=== PATIENT | female | born 1985 | race Two or more races ===

== ENCOUNTER 2020-09-28 12:46 | Outpatient (REF) | payer OTHER, SELFPAY | END 2020-09-28 12:47 | disposition home or self-care (01) | LOC: HO.LAB 12:46 | PROVIDERS: Visit Provider Internal Medicine | DX: Z20.828 Contact with and (suspected) exposure to other viral communicable diseases (principal) | CPT/HCPCS: C9803; U0003 ==

== ENCOUNTER 2020-10-27 09:57 | Outpatient (REF) | payer OTHER, SELFPAY | END 2020-10-27 09:58 | disposition home or self-care (01) | LOC: HO.LAB 09:57 | PROVIDERS: Visit Provider Internal Medicine | DX: Z20.822 Contact with and (suspected) exposure to COVID-19 (principal) | CPT/HCPCS: 36415; C9803; U0003 ==

== ENCOUNTER 2020-11-09 14:41 | Outpatient (REF) | payer OTHER, SELFPAY | END 2020-11-09 14:42 | disposition home or self-care (01) | LOC: HO.LAB 14:41 | PROVIDERS: Visit Provider Internal Medicine | DX: Z20.822 Contact with and (suspected) exposure to COVID-19 (principal) | CPT/HCPCS: 36415; C9803; U0003 ==

== ENCOUNTER → 2023-07-18 13:12 | Outpatient (BNVA) | payer OTHER, SELFPAY | PROVIDERS: Visit Provider Physician Assistant Medical | DX: M70.841 Other soft tissue disorders related to use, overuse and pressure, right hand (principal) | CPT/HCPCS: 99203 ==

== ENCOUNTER → 2023-08-03 09:28 | Outpatient (BNVA) | payer OTHER, SELFPAY | PROVIDERS: Visit Provider Physician Assistant Medical | DX: M65.841 Other synovitis and tenosynovitis, right hand (principal); M19.041 Primary osteoarthritis, right hand | CPT/HCPCS: 99213 ==

== ENCOUNTER → 2023-08-07 13:08 | Outpatient (BNVA) | payer OTHER, SELFPAY | PROVIDERS: Visit Provider Physician Assistant Medical | DX: M79.644 Pain in right finger(s) (principal) | CPT/HCPCS: 99213 ==

== ENCOUNTER 2023-08-11 08:49 | Outpatient (AMB) | payer OTHER, SELFPAY ==
--- NOTE | 2023-08-11 08:58 | MHC.OFFVIS ---
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 She had swelling and pain in her 2nd, 3rd and 4th digit, states after time her 2nd digit never healed. Her job sent her to work connection where she was referred to OT. At her 4th session of OT her pain increased, OT was discontinued until her appointment with orthopedics. Currently pain is located at the PIP of 2nd finger and not able to fully bend finger to make a fist. Allergies No Known Allergies Allergy (Verified 08/11/23 09:04) Medication List - Last Reconciled 08/11/23 by Sole Farrell MD ibuprofen 800 mg PO TID PRN HPI HPI Comments History of Present Illness Details Injury at work with fall on hand. The notes from work connection reviewed. Reported that x-rays done there were unremarkable. However films were not available for my review. Patient says that all other fingers have improved except for the right 2nd digit. She is still unable to flex without pain. She reports pain on both dorsal and palmar aspects, from MCP to PIP joint only. It does appear a little bit more swollen than the rest of the fingers. No weakness and the rest of the fingers. No pain. Denies numbness anywhere. She has been going to OT but this is on hold due to the pain. She wears a finger splint. 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 MSK: Inspection reveals appropriate head and neck positioning. Right 2nd digit appears more swollen. Unable to flex at IP joints without pain. Extension is full. Sensitivity to touch from MCP to PIP joint but no allodynia. No intrinsic hand weakness noted on rest of fingers. No atrophy noted. No hand weakness or wrist drop. Kalyani test negative. Carpal compression test negative. Tinel sign negative. Strength is 5/5 in all muscle groups tested. No increased tone noted. Neurological: Neurologic examination of the upper and lower extremities was nonfocal with intact sensation, muscle stretch reflexes and without focal motor deficits . Joseph?s negative bilaterally. Gait is non-antalgic without loss of balance. Results Reviewed Results Reviewed: I independently reviewed the results of the following: X-ray done in the office showed preserved joint spaces even on the 2nd digit. No signs of fracture. Spurs noted on 1st digit IP and MCP. This is not where her pain is. Await official read. I reviewed records from the following: Work connection Assessment & Plan Assessment & Plan (1) Injury of finger: Code(s): S69.90XA - Unspecified injury of unspecified wrist, hand and finger(s), initial encounter Qualifiers: Encounter type: initial encounter Laterality: right Qualified Code(s): S69.91XA - Unspecified injury of right wrist, hand and finger(s), initial encounter (2) CRPS (complex regional pain syndrome type II): Code(s): G56.40 - Causalgia of unspecified upper limb Qualifiers: Complex regional pain syndrome affected site: upper extremity Laterality: right Qualified Code(s): G56.41 - Causalgia of right upper limb Plan Work injury on right hand. Continues to have pain on right 2nd digit which affects range of motion and strength on that finger. X-rays do not show any fracture or arthritis on that finger. Concerned about possibility of developing CRPS. Would start her on gabapentin 100 mg QHS. Discussed side effects and precautions. Would advice to restart OT by next week. Continue to work on achieving full range of motion and strength. Continue to wear the finger splint. Will re-evaluate in 2 months. If not improved, will consider referral to Pain Management for nerve block. Assessment and plan discussed with patient, and patient was agreeable. All questions were answered thoroughly. Sole Farrell MD, DAPHNE Board Certified, [place] [employer] and Rehabilitation (ABPMR) Board Certified, [place] Board of Electrodiagnostic Medicine (ABEM) Orders: Orders XR hand RT min 3V Today S69.90XA - Unspecified injury of unspecified wrist, hand and finger(s), initial encounter Medications: New gabapentin 100 mg PO BEDTIME 30 caps 3RF Coding Level of Care Code New Pt Level 4 (52467) Diagnoses Injury of finger of right hand, initial encounter S69.91XA Encounter type: initial encounter Laterality: right Complex regional pain syndrome type 2 of right upper extremity G56.41 Complex regional pain syndrome affected site: upper extremity Laterality: right
[2023-08-11 09:04] VITALS: BMI 28.3
== END 2023-08-11 10:00 | disposition home or self-care (01) ==
PROVIDERS: Visit Provider Physical Medicine & Rehabilitation
DX: S69.91XA Unspecified injury of right wrist, hand and finger(s), initial encounter (principal); G56.41 Causalgia of right upper limb
CPT/HCPCS: 99204

== ENCOUNTER 2023-08-11 08:49 | Outpatient (REF) | payer OTHER, SELFPAY ==
--- NOTE | ~2023-08-11 | XR_ITS ---
EXAMINATION: XR HAND, RIGHT CLINICAL INFORMATION: Right 2nd digit pain, injury. COMPARISON: 07/18/2023. TECHNIQUE: PA, lateral, and oblique views of the right hand. FINDINGS: Mild degenerative changes in the 1st carpometacarpal joint with joint space narrowing and hypertrophic change. Alignment preserved. Focal soft tissue swelling at the proximal interphalangeal joint of the 2nd digit. No displaced fracture appreciated. XR/XR hand RT min 3V IMPRESSION: 1. Mild degenerative changes in the 1st carpometacarpal joint. 2. Focal soft tissue swelling at the proximal interphalangeal joint of the 2nd digit. No displaced fracture appreciated.
== END 2023-08-11 08:50 | disposition home or self-care (01) ==
LOC: HO.HOSX 08:49
PROVIDERS: Visit Provider Physical Medicine & Rehabilitation
DX: S69.91XA Unspecified injury of right wrist, hand and finger(s), initial encounter (principal); G56.41 Causalgia of right upper limb
CPT/HCPCS: 73130

== ENCOUNTER → 2023-08-24 09:49 | Outpatient (BNVA) | payer OTHER, SELFPAY | PROVIDERS: Visit Provider Physician Assistant Medical | DX: G90.511 Complex regional pain syndrome I of right upper limb (principal) | CPT/HCPCS: 99213 ==

== ENCOUNTER 2023-09-12 19:29 | Outpatient (REF) | payer OTHER, SELFPAY ==
--- NOTE | ~2023-09-12 | MR_ITS ---
EXAMINATION: MR HAND WITHOUT CONTRAST, RIGHT CLINICAL INFORMATION: Second digit persistent recurrent pain edema weakness the PIP joint. COMPARISON: X-ray the right hand July 2023. TECHNIQUE: MRI of the right hand without contrast on a high-field MRI scanner FINDINGS: Second PIP joint: No arthrosis or effusion. Bone normal. No apparent cartilage loss. Surrounding soft tissues are normal. Remaining bones joints and soft tissues normal. MR/MR hand RT wo con IMPRESSION: Normal MRI of the right hand. Second PIP joint unremarkable.
== END 2023-09-12 19:30 | disposition home or self-care (01) ==
LOC: HO.MRI 19:29
PROVIDERS: PCP Nurse Practitioner; Visit Provider Internal Medicine
DX: M79.621 Pain in right upper arm (principal); R60.9 Edema, unspecified
CPT/HCPCS: 73218

== ENCOUNTER 2023-09-26 15:00 | Outpatient (RCR) | payer OTHER, SELFPAY ==
--- NOTE | 2023-07-26 14:30 | MHC.OT.EP ---
[address] [phone] Occupational Therapy Plan of Care Patient Name: Gabbi Escamilla Date of Evaluation: 07/26/23 Diagnosis: Right hand/finger tendonitis Pain Location: Pain in right index finger, radiating to wrist Current: 6/10 Best: 0/10 Worst: 6/10 Pain Score: 6 Pain Scale Used: Numeric (0 - 10) Aggravating Factors: Bending index finger, pulling, knocking on the door Alleviating Factors: Stretch, rest, ibuprofen Assessment: Gabbi is a 37 y/o female referred to OT s/p work related hand injury/ tendonitis sustained in April 2023. Pt returned to work following that injury in April, however reports pain has not improved and the hand frequently feels fatigued. Strength has decreased with gross grasp in R at 25# versus 70# on the left. A resting finger splint was fabricated this visit and pt. was instructed to wear during work hours, and take off to perform tendon glides 2-3x/ day. A 20.5% limitation is reported per the Quick D[employer] assessment. Pt would benefit from skilled OT to address noted barriers and assist in return to PLOF. 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 Thank you once again for your referral.
--- NOTE | 2023-08-01 15:37 | MHC.OT.OP ---
[address] [phone] F: [phone] Occupational Therapy Progress Note Patient Name: Gabbi Escamilla Diagnosis: Right hand/finger tendonitis Date of Surgery: Date of Evaluation: 07/26/23 Treatments to Date: 3 Cancellations to Date: No Shows to Date: Subjective: I've trying to use my index with my hand, but sometimes I drop things Pain Score: 3 Pain Location: Right index finger Objective Measures: Right D2 MCP 84 PIP 100 DIP 30 GG R 43lb L 70lb Status: Progressing Assessment: Still w/ low pain at rest, increases w/ digit stretches and general use of right hand, trying to incorporate index into swatch checker and use, but often avoiding use. Still protecting w/ splint at work. Increased MCP and PIP range from initial assessment, but still w/ DIP tightness and more pain/stretch w/ hook and composite fists. Good follow through w/ HEP and protection of digit strain. Good improvement in DIP flex and comfort after tx. 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
--- NOTE | 2023-08-22 11:34 | MHC.OT.DC ---
[address] [phone] F: [phone] Occupational Therapy Discharge Note Patient Name: Gabbi Escamilla Provider: Lilian Hood PA-C Diagnosis: Right hand/finger tendonitis Date of Evaluation: 07/26/23 Date of Discharge: 08/22/23 Treatments to Date: 5 Discharge Status: Recommend MD Follow-up Discharge Summary: Gabbi was referred to OT s/p finger strain, she had made good improvements with range and pain, but reinjured it at some point w/ unknown mechanism, which resulted in her missing work. Continues to have swelling and tenderness in D2 with reports of 5 for pain. Decreased ROM from prior visit but no known injury or aggravation. Some ORL tightness, improving w/ heat and blocked DIP range. She will make appoint for MRI and ortho consult. Pt otherwise doing well with HEP and joint protection. We will hold at this time while awaiting further assessment. Electronically Signed By: Dipika Pierre, OTR/L CHT Reviewed/agree with student documentation: Yes Therapist: Dipika Pierre OTR/L Please Sign and return to therapist, thank you for your referral.
== END 2024-03-13 13:29 | disposition home or self-care (01) ==
LOC: HO.OT 15:00
PROVIDERS: Visit Provider Physician Assistant Medical
DX: M77.8 Other enthesopathies, not elsewhere classified (principal)
CPT/HCPCS: 97035; 97110; 97140; 97165; 97530; 97760

== ENCOUNTER → 2023-09-27 11:32 | Outpatient (BNVA) | payer OTHER, SELFPAY | PROVIDERS: PCP Nurse Practitioner; Visit Provider Physician Assistant Medical | DX: G56.41 Causalgia of right upper limb (principal) | CPT/HCPCS: 99213 ==

== ENCOUNTER 2023-10-18 09:53 | Outpatient (AMB) | payer OTHER, SELFPAY ==
--- NOTE | 2023-10-18 09:57 | MHC.OFFVIS ---
Intake Intake Visit Reasons: ov- R 2nd digit tendon injury DOI 05/02/23 Intake Note: Pt presents to the office today for a R 2nd digit tendon injury. Pt states the pain isnt as bad as before but it is still painful. Pt states by the end of the day her finger is throbbing, swollen and painful. Allergies No Known Allergies Allergy (Verified 10/18/23 09:58) Medication List - Last Reconciled 10/18/23 by Sole Farrell MD gabapentin 100 mg PO BEDTIME ibuprofen 800 mg PO TID PRN HPI HPI Comments History of Present Illness Details Injury at work with fall on hand. The notes from work connection reviewed. Reported that x-rays done there were unremarkable. However films were not available for my review. Patient says that all other fingers have improved except for the right 2nd digit. She is still unable to flex without pain. She reports pain on both dorsal and palmar aspects, from MCP to PIP joint only. It does appear a little bit more swollen than the rest of the fingers. No weakness and the rest of the fingers. No pain. Denies numbness anywhere. She finished OT. Recent hand MRI was normal. Been taking 100mg gabapentin every other day, no more side effects, able to work/function with it. Overall 50% better. Still notes swelling and pain by end of the day, and throbbing. She uses the tape wrap. 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 MSK: Inspection reveals appropriate head and neck positioning. Right 2nd digit no longer swollen or warm. No redness. No hypersensitivity or allodynia. Now able to fully flex. However there is some pain on flexor tendon. No intrinsic hand weakness noted on rest of fingers. No atrophy noted. No hand weakness or wrist drop. Kalyani test negative. Carpal compression test negative. Tinel sign negative. Strength is 5/5 in all muscle groups tested. No increased tone noted. Neurological: Neurologic examination of the upper and lower extremities was nonfocal with intact sensation, muscle stretch reflexes and without focal motor deficits . Joseph?s negative bilaterally. Gait is non-antalgic without loss of balance. 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 COMPARISON: X-ray the right hand July 2023. TECHNIQUE: MRI of the right hand without contrast on a high-field MRI scanner FINDINGS: Second PIP joint: No arthrosis or effusion. Bone normal. No apparent cartilage loss. Surrounding soft tissues are normal. Remaining bones joints and soft tissues normal. MR/MR hand RT wo con IMPRESSION: Normal MRI of the right hand. Second PIP joint unremarkable. Assessment & Plan Assessment & Plan (1) Injury of finger: Code(s): S69.90XA - Unspecified injury of unspecified wrist, hand and finger(s), initial encounter Qualifiers: Encounter type: initial encounter Laterality: right Qualified Code(s): S69.91XA - Unspecified injury of right wrist, hand and finger(s), initial encounter (2) CRPS (complex regional pain syndrome type II): Code(s): G56.40 - Causalgia of unspecified upper limb Qualifiers: Complex regional pain syndrome affected site: upper extremity Laterality: right Qualified Code(s): G56.41 - Causalgia of right upper limb Plan Overall much improved with no more swelling and improved ability to flex finger. It has not developed into full-blown CRPS. Continue gabapentin 100 mg every other night, though I think we can eventually taper her off this once she does not have any more swelling or pain. Continue to finger tape when at work. Up until she is completely pain-free. Will put her on a finger splint to be worn at the end of the day or nighttime to help with the swelling. Advised to ice before putting on the splint. Assessment and plan discussed with patient, and patient was agreeable. All questions were answered thoroughly. Follow-up in 3 months. Sole Farrell MD, DAPHNE Board Certified, [place] Board of Physical [employer] and Rehabilitation (ABPMR) Board Certified, [place] Board of Electrodiagnostic Medicine (ABEM) Coding Level of Care Code Est Pt Level 4 (00633) Diagnoses Injury of finger of right hand, initial encounter S69.91XA Encounter type: initial encounter Laterality: right Complex regional pain syndrome type 2 of right upper extremity G56.41 Complex regional pain syndrome affected site: upper extremity Laterality: right
== END 2023-10-18 10:14 | disposition home or self-care (01) ==
PROVIDERS: Visit Provider Physical Medicine & Rehabilitation
DX: S69.91XA Unspecified injury of right wrist, hand and finger(s), initial encounter (principal); G56.41 Causalgia of right upper limb
CPT/HCPCS: 99214

== ENCOUNTER → 2023-10-18 09:53 | Outpatient (BNVA) | payer OTHER, SELFPAY | PROVIDERS: Visit Provider Physical Medicine & Rehabilitation | DX: S69.91XA Unspecified injury of right wrist, hand and finger(s), initial encounter (principal); G56.41 Causalgia of right upper limb; Z79.899 Other long term (current) drug therapy | CPT/HCPCS: 99212 ==

== ENCOUNTER → 2023-11-15 11:01 | Outpatient (BNVA) | payer OTHER, SELFPAY | PROVIDERS: Visit Provider Physician Assistant Medical | DX: S64.490D Injury of digital nerve of right index finger, subsequent encounter (principal); X58.XXXD Exposure to other specified factors, subsequent encounter | CPT/HCPCS: 99213 ==

== ENCOUNTER 2024-02-27 10:09 | Outpatient (AMB) | payer OTHER, SELFPAY ==
--- NOTE | 2024-02-27 10:15 | A.OFFVIS_ITS ---
Intake Visit Reasons: OV-R 2nd digit tendon injury DOI 05/02/23 Intake Note: Gabbi a 38 year old female who presents today for a follow up of right 2nd digit tendon injury, DOI 05/02/23. Patient reports she is doing well, states at times she feels the need to crack her knuckle. She is no longer using finger taping at work. Allergies No Known Allergies Allergy (Verified 02/27/24 10:21) Medication List - Last Reconciled 02/27/24 by Sole Farrell MD HPI Comments Details: Injury at work with fall on hand. The notes from work connection reviewed. Reported that x-rays done there were unremarkable. However films were not available for my review. Patient says that all other fingers have improved except for the right 2nd digit. She is still unable to flex without pain. She reports pain on both dorsal and palmar aspects, from MCP to PIP joint only. It does appear a little bit more swollen than the rest of the fingers. No weakness and the rest of the fingers. No pain. Denies numbness anywhere. She finished OT. Recent hand MRI was normal. No longer taking gabapentin or ibuprofen. Has been back to work without any issues. Number pain or swelling. From time to time, she has the sensation of needing to crack the finger. No other issues. 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 MSK: Inspection reveals appropriate head and neck positioning. No swelling on any digits. No redness. No hypersensitivity or allodynia. Able to fully flex. No locking. No intrinsic hand weakness noted on rest of fingers. No atrophy noted. No hand weakness or wrist drop. Kalyani test negative. Carpal compression test negative. Tinel sign negative. Strength is 5/5 in all muscle groups tested. No increased tone noted. Neurological: Neurologic examination of the upper and lower extremities was nonfocal with intact sensation, muscle stretch reflexes and without focal motor deficits . Joseph?s negative bilaterally. Gait is non-antalgic without loss of balance. Assessment & Plan Assessment & Plan (1) Injury of finger: Code(s): S69.90XA - Unspecified injury of unspecified wrist, hand and finger(s), initial encounter Category: Medical Qualifiers: Encounter type: initial encounter Laterality: right Qualified Code(s): S69.91XA - Unspecified injury of right wrist, hand and finger(s), initial encounter Plan Six months since I 1st saw her, she no longer has pain or swelling. Completely resolved. Not taking gabapentin or NSAIDs anymore. Back to work without issues. 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 Assessment and plan discussed with patient, and patient was agreeable. All questions were answered thoroughly. Follow up as needed. Sole Farrell MD, DAPHNE Board Certified, [place] [employer] and Rehabilitation (ABPMR) Board Certified, [place] [employer] Electrodiagnostic Medicine (ABEM) Coding Level of Care Code Est Pt Level 3 (27072) Diagnoses Injury of finger of right hand, initial encounter S69.91XA Encounter type: initial encounter Laterality: right
== END 2024-02-27 10:29 | disposition home or self-care (01) ==
PROVIDERS: Visit Provider Physical Medicine & Rehabilitation
DX: S69.91XA Unspecified injury of right wrist, hand and finger(s), initial encounter (principal)
CPT/HCPCS: 99212

== ENCOUNTER → 2024-02-27 10:09 | Outpatient (BNVA) | payer OTHER, SELFPAY | PROVIDERS: Visit Provider Physical Medicine & Rehabilitation | DX: S69.91XD Unspecified injury of right wrist, hand and finger(s), subsequent encounter (principal) | CPT/HCPCS: 99212 ==

== ENCOUNTER 2025-05-20 15:30 | Emergency (ER) | payer BC, SELFPAY ==
[2025-05-20 15:37] VITALS: BP 143/75; PULSE 75; RESP 16; TEMP 36.5; O2SAT 98; BMI 28.2
--- NOTE | 2025-05-20 15:40 | ED_ITS ---
HPI - Wound/Laceration General Chief Complaint: Wound/Laceration Stated Complaint: Lac to L pointer finger Time Seen by Provider: 05/20/25 15:39 Source: patient Mode of arrival: ambulatory Limitations: no limitations History of Present Illness ED Provider: Adriana Ryan PA-C HPI narrative: 39 yo right hand dominant female presents to the ER for evaluation of a laceration to her left index finger that occurred this morning when she was opening stickers with a knife. She reports it keeps opening up and bleeding despite her tying a butteryfly bandage and wrapping it up. she is able to flex and extend the finger. no numbness or tingling. she is unsure of her last tdap. no other injuries. it does not involve the nail bed. Place: home Patient tetanus UTD: No Context: accidental Associated symptoms: other (bleeding, opening up) Treatments prior to arrival: bandage Related Data Allergies Allergy/AdvReac Type Severity Reaction Status Date / Time No Known Allergies Allergy Verified 05/20/25 15:39 Review of Systems Review of Systems: Yes all other systems are reviewed and are negative [facility] Past Medical History Medical History (Updated 05/20/25 @ 15:59 by ANTONIO Contreras) Injury of finger Social History Social History (Updated 10/18/23 @ 09:58 by Rosa Hyde CMA) Alcohol intake: never Patient Tobacco Use Status: Former Tobacco user Current occupational status: unemployed 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 Oriented X3. No acute distress. HEENT: normal inspection CVS: Normal heart rate and rhythm. Pulses normal. Respiratory: No respiratory distress. Skin: Skin warm and dry. Normal skin color. Normal skin turgor. No rashes. Extremities: left index finger with a 2cm superficial linear laceration to the lateral aspect of the finger with exposed adipose tissue, no bleeding. FROM Neuro: Oriented X 3. FROM of all digits. no motor or sensory deficits of the digits. Vital Signs: Vital Signs: Last Vital Signs Temp 97.7 F 05/20/25 15:37 Pulse 75 05/20/25 15:37 Resp 16 05/20/25 15:37 BP 143/75 H 05/20/25 15:37 Pulse Ox 98 05/20/25 15:37 O2 Del Method Room Air 05/20/25 15:37 BMI result Body Mass Index 28.2 Medications Administered Discontinued Medications Generic Name Dose Route Start Last Admin Trade Name Freq PRN Reason Stop Dose Admin Diphtheria/Tetanus/Acell Pertussis 0.5 ml 05/20/25 15:39 05/20/25 15:43 Diphth,Pertus(Acell),Tet Adult 0.5 Ml Syringe IM 05/20/25 15:40 0.5 ml .ONCE ONE Administration Lidocaine HCl 5 ml 05/20/25 15:39 05/20/25 15:43 Lidocaine Hcl 2 % Mpf 5 Ml Vial INFILTRATI 05/20/25 15:40 5 ml ONCE ONE Administration Medical Decision Making Medical Decision Making MDM Narrative: 39 yo female presenting for evaluation of laceration to left index finger. cut w/ blade while cutting sticker. no tendon involvement on exam. would was cleansed w/ saline. deep structures intact. 4 sutures applied for wound closure with adequate approximation of wound edges and resolution of bleeding patient counseled on wound care management and return precautions. stable for d/c home. Differential Diagnosis Differential Diagnoses: The differential diagnosis associated with the presentation includes deep laceration, superficial laceration, tendon laceration, open fracture Tests considered The following testing was considered but not selected: xr finger considered Prescription Management I considered prescription management with: Pain Medication and Antibiotic Procedures Laceration Laceration 1: Site: hand Side (If applicable): left Size (cm): 2 Description: linear Depth: simple, single layer Local Anesthetic: lidocaine 1% Amount of anesthesia used (mL): 1 Pre-repair: wound explored, irrigated extensively and deep structures intact Skin layer closed with: nylon Size (cm): 5-0 Number of sutures: 4 Technique: simple, interrupted Critical Care Time Critical Care Time Critical Care Time: No Discharge Plan Discharge Clinical Impression: Finger laceration Qualifiers: Encounter type: initial encounter Finger: index finger Damage to nail status: without damage Foreign body presence: without foreign body Laterality: left Qualified Code(s): S61.211A - Laceration without foreign body of left index finger without damage to nail, initial encounter Patient Disposition: Home, Self-Care Instructions: Finger Laceration (ED) Additional Instructions: 4 stitches were used to close your wound today You will need your stitches out in 5-7 days. See you doctor for this or come back to the ER and we will remove them. Do not get wet for 24 hours, after that you can briefly wash with soap and water then pat dry. Keep wound clean and covered. All open to air for several hours per day when home. Do not submerge in water, no swimming. If you develop signs of infection including increased pain, swelling, redness or drainage of pus come back to the ER for further evaluation. Print Language: Japanese
[2025-05-20] MEDS: Lidocaine HCl 2 % MPF 5 ML VIAL INFILTRATI (15:43)
[2025-05-20] MEDS: Diphth,Pertus(ACell),Tet Adult 0.5 ML SYRINGE IM (15:43)
--- OUTSIDE RECORDS SUMMARY | 2025-05-20 16:13 | XMS_ITS | Clinical Summary ---
Author Organization [facility] Address [address] [place] [address] Phone Care Team Providers Care Harness Installer Name Role Phone Mesfin Cordova MD Primary Care Provider [phone] Surgical History Surgery Date Site/Laterality Comments CERVICAL BIOPSY W/ LOOP ELECTRODE EXCISION 1992 PROCEDURE: PA CONIZATION CERVIX W/WO D&C RPR ELTRD EXC Medical History Medical History Date Comments Historical Medical DX DX:Abnorma l Pap smear Head trauma DX:Head trauma; COMMENT: with seizure activity Family History Medical History Relation Name Comments Breast cancer Mother's side 1 great aunt Other: ca ovaries Mother's side 2 great a unt Blindness Neg Hx Cataracts Neg Hx Glaucoma Neg Hx Macular degeneration Neg Hx Strabismus Neg Hx Relation Name Status Comments Father Alive STROKE, Maternal Grandfather (Age 43) [place] Maternal Grandmother Alive HTN Mother Alive Hyperlipidemia Mother's side 1 Mother's side 2 Paternal Grandmother lung ca Social History Tobacco Use Types Packs/Day Years Used Date Smoking Tobacco: Former Cigarettes Smokeless Tobacco: Never Alcohol Use Standard Drinks/Week Comments No 0 (1 standard drink = 0.6 oz pur e alcohol) Comments Unknown Sex and Gender Information Value Date Recorded Sex Assigned at Female 08/14/2024 2:29 PM EDT Legal Sex Female 2:15 PM EST Gender Identity Not on file Sexual Orientation Straight 08/14/2024 2: 29 PM EDT Obstetrics History Plan of Treatment Health Maintenance Due Date Last Done Comments Breast Cancer Screening 1984 Pneumococcal Vaccine: Pediatrics (0 to 5 Years) and At-Risk Patients (6 to 49 Years) (1 of 2 - PCV) 2003 Social Influencers of Health Screening 09/14/2022 Cervical Cancer Screening: Pap Smear 08/13/2023 08/13/2020 COVID-19 Vaccine ( - season) 2024 11/25/2022, 11/09/2021, 10/19/2021 Depression Screening 10/16/2024 Influenza Vaccine (#1) 2025 , 11/25/2022, 10/19/2021, Additional history exists DTaP,Tdap,and Td Vaccines (10 - Td or Tdap) 12/02/2025 12/02/2015, 08/20/2013, 07/06/2012, Additional history exists Cholesterol Screening (Lipid Panel) 11/27/2028 11/27/2023, 11/25/2022, 10/19/2021 IPV Vaccines Completed 12/08/1988, 02/14, 12/08/1985, Additional history exists MMR Vaccines Completed 05/08/1995, 04/07/1986 Varicella Vaccines Completed 03/04/1999, 05/21/1988 Hepatitis B Vaccines Completed 06/26/2000, 03/04/1999, 05/21/1996 HIV Screening Completed 08/13/2020 Hepatitis C Screening Completed 08/13/2020, 020 HIB Vaccines Aged Out No longer eligi ble based on patient's age to complete this topic HPV Vaccines Aged Out No longer eligi ble based on patient's age to complete this topic Hepatitis A Vaccines Aged Out No long er eligible based on patient's age to complete this topic Meningococcal ACWY Vaccine Aged Out N o longer eligible based on patient's age to complete this topic Meningococcal B Vaccine Aged Out No l onger eligible based on patient's age to complete this topic RSV Immunization Patients Under 20 months Aged Out No longer eligible based on patient's age to complete this topic Insurance [facility] Care Teams Harness Installer Relationship Specialty Start Date End Date Mesfin Cordova MD [address] [place] [address] PCP - General 04/27/10
--- OUTSIDE RECORDS SUMMARY | 2025-05-20 16:13 | XMS_ITS | Clinical Summary ---
Author Organization [facility] Address [address] [place] [address] Care Team Providers Care Manager Traffic Name Role Phone Mary Montez TUBERCULOSIS SPECIALIST-C Primary Care Provider [phone] Source Comments PLEASE NOTE, if this patient is a minor, it may be UNLAWFUL to discuss sensitive information that is contained in these records (such as FAMILY PLANNING, MENTAL HEALTH or SUBSTANCE ABUSE) with the minor patient's parent or other person without the patient's specific authorization.[facility] Allergies No known active allergies Medications compress.stockin g,knee,reg,medIn dications:Varico se veins of leg with pain, right Knee high compression stockings, 20-30 mmHg. Lifetime need. Dx I83.811 2 Each 2 8 Active compr.stocking,t high,reg,largeIn dications:Varico se veins of both lower extremities with pain Compression stockings 10-15 mmHg, bilateral, thigh high. Lifetime need. Wear daily as needed for varicose veins. 2 Each 2 3 Active diclofenac sodium (VOLTAREN) 1 % gelIndications:A rthritis of knee Apply 2 g topically 2 (two) times daily 100 g 2 5 Active Active Problems Problem Noted Date Diagnosed Date Herpes simplex virus type 1 (HSV-1) dermatitis 0 01/21/2025 Lipoma of right upper extremity 01/21/2025 Moderate mixed hyperlipidemia not requiring stat in therapy 11/28/2023 Chondromalacia of patellofemoral joint 1 Overview (09/15/2021): 12/22/20 Eval at [facility]. Rx knee braces, recommended PT. Varicose veins of both lower extremities with pa in 08/17/2020 S/P tubal ligation 05/07/2019 Overview (05/07/2019): 04/19/19 H/o thrombophilia d/t prothrombin gene mutation 01/27/2016 Overview (01/27/2016): Eval 01/13/16 at [facility] Hematology, Dr Wade, Dr Ashwin Yates. Likely heterozygous, does not require anticoagulation. Avoid smoking and hormonal congrol. Advised increase iron to BID , take 1 hour before meals on empty stomach. If develops a clot, will require long-term indefinite anticoagulation. F/u for IV iron infusions if no improvement with oral supplementation. Adnexal cyst 01/11/2016 Overview (01/11/2016): Incidental finding on abdominal CT at [facility] 12/23/15 1.8 cm R adnexal cyst Papanicolaou smear 01/11/2016 Overview (08/24/2020): Pap smear LGSIL with + HPV 01/11/16 at [facility], has not yet had colposcopy 08/13/20 Pap smear NILM, Neg HPV, repeat 5 years. Resolved Problems Problem Noted Date Diagnosed Date Resolved Date History of COVID-19 10/202011/12/2020 11/27/2023 Sprain of right knee 10/19/2020 025 Candidal intertrigo 08/17/2020 01/22/20 25 Muscle cramp 01/02/2018 08/13/2020 Overview (01/02/2018): 12/27/17 [facility] ED for leg pain and swelling. U/S neg for DVT. Dx: muscle cramp. Gastritis 10/23/2017 11/27/2023 Overview (10/23/2017): 10/05/17 [facility] ED for epigastric abd pain. U/s negative for gallstones Given Ranitidine. Thoracic back pain 04/25/2017 0 Overview (05/23/2017): 04/22/[address] [facility] for thoracic back pain. Given cyclobenzaprine and ibuprofen 05/03/17 F/u at Urgent care, improved, advised f/u with PCP Acute URI 03/09/2017 08/13/2020 Overview (10/23/2017): 02/27/17 [facility]; rapid flu negative. 10/02/17 [facility]. Dx: cough, given Tessalon Acute right ankle pain 09/12/201611/27 Overview (09/28/2016): 09/04/16 Eval at [facility] for pain in R leg. Advised to go to [facility] ED to r/o DVT 09/04/16 Seen at [facility] for r/o DVT- no DVT on U/S H/O pyelonephritis 01/11/2016 4 Overview (01/11/2016): Seen at [facility] ED 12/23/15. Tx'd with Cipro, Zofran, hydrocodone. Advised f/u in 2 days Iron deficiency anemia 10/23/201311/28 Overview (01/27/2016): Eval 01/13/16 at [facility] Hematology, Dr Wade, Dr Ashwin Yates. Advised increase iron to BID , take 1 hour before meals on empty stomach. F/u for IV iron infusions if no improvement with oral supplementation. Anemia 07/03/2013 05/18/2015 Routine adult health maintenance 06/27/2013 05/18/2015 Encounters Date Type Department Care Team Description 03/04/2025 Interim Notes [address] [address] Mary Montez FNP-C from Last 3 Months Immunizations Immunization Administration Dates Next Due DTAP (Infanrix) 12/08/1988, 7,08/07/1985,1984,03/07/1985 Flu, Preservative Free 12/15/2023,2022,10/19/2021,2019,08/15/2018 Hep B vaccine, adolescent/hi gh risk dosage 06/26/2000,03/04/1999,05/21/1996 Hep B,adult,adjuvanted (HEPLISAV) 06/26/2000 INFLUENZA, SEASONAL, INJECTABLE 12/02/2015,07/23 IPV (IPOL) 12/08/1988, 7,12/08/1985,1984,03/07/1985 Influenza, Whole 07/06/2012,08/31/2007, 3 MMR (MMR II/Priorix) 05/08/1995,04/07/1986 PFIZER COVID VACCINE, PURPLE CAP, 12+ 11/09/2021 ,10/19/2021 Pfizer-[employer] COVID-19 Vac cine Bivalent, (ODELL PFIZER-BIONTECH COVID-19 VACCINE BIVALENT, (ODELL CAP 11/25/2022 TDAP 12/02/2015, 3,07/06/2012,2008 Varicella (Varivax), Live Vaccine 03/04/1999,03/1988 tetanus toxoid, unspecified 07/03/2001 Family History Medical History Relation Name Comments No Known Problems Brother 1 No Known Problems Brother 2 No Known Problems Brother 3 No Known Problems Brother 4 No Known Problems Brother 5 No Known Problems Brother 6 Alcohol/Drug Abuse Father Depression Father Heart Problems Father Stroke Father Cancer Maternal Aunt Breast CA Heart Problems Maternal Grandfather Decea sed, [place], pacemaker Diabetes Maternal Grandmother Depression Mother Heart Problems Mother High Cholesterol Mother Hypertension Mother Cancer Paternal Grandmother Stomach CA No Known Problems Sister Sickle Cell Anemia Son 1 Trait onl y No Known Problems Son 2 Relation Name Status Comments Brother 1 Alive Brother 2 Alive Brother 3 Alive Brother 4 Alive Brother 5 Alive Brother 6 Alive Father Alive Maternal Aunt Alive Maternal Grandfather Maternal Grandmother Alive Mother Alive Paternal Grandmother Sister Alive Son 1 Alive Son 2 Alive Social History Tobacco Use Types Packs/Day Years Used Date Smoking Tobacco: Former Cigarettes 2 10 Smokeless Tobacco: Never Tobacco Cessation:Counseling Given: Not Answered Alcohol Use Standard Drinks/Week Comments No 0 (1 standard drink = 0.6 oz pur e alcohol) past- 5 years ago Social Connections Answer Date Recorded How often do you feel lonely or isolated from th ose around you? 1 01/21/2025 Financial Resource Strain Answer Date R ecorded Hard to pay for: Food 1 01/21/2025 Stress Answer Date Recorded Do you feel these kinds of stress these days? 1 01/21/2025 Physical Activity Answer Date Recorded Physical Activity 0 06/08/2019 Food Insecurity Answer Date Recorded Hard to pay for: Food 1 01/21/2025 Transportation Needs Answer Date Record ed Hard to pay for: Transportation 1 01/21/2025 Housing Stability Answer Date Recorded Hard to pay for: Rent/Mortgage payment 1 01/21/2025 Safety and Environment Answer Date Castro rded How often does anyone, inclu ding family and friends, physically hurt you? 1 01/21/2025 Utilities Answer Date Recorded Hard to pay for: Utilities 1 01/21 Employment Answer Date Recorded Stress 0 01/03/2022 Comments No Sex and Gender Information Value Date Recorded Sex Assigned at Female 06/16/2018 6:38 AM PDT Legal Sex Female 11:36 AM PDT Gender Identity Female 06/16/2018 6:38 AM PDT Sexual Orientation Straight 06/16/2018 6: 38 AM PDT Last Filed Vital Signs Vital Sign Reading Time Taken Comments Blood Pressure 106/70 02/07/2025 9:17 AM EDT Pulse 65 02/07/2025 9:17 AM EDT Temperature 36.7 C (98.1 F) 01/21/2025 8:48 AM EDT Respiratory Rate 16 02/07/2025 9:17 AM EDT Oxygen Saturation 98% 02/07/2025 9:17 AM EDT Inhaled Oxygen Concentration - - Weight 77.6 kg (171 lb) 02/07/2025 9:17 AM EDT Height 165.1 cm (5' 5 ) 02/07/2025 9:17 AM EDT Body Mass Index 28.46 02/07/2025 9:17 AM EDT Plan of Treatment Health Maintenance Due Date Last Done Comments HPV Screening 1984 [id number] ( season) 2024 11/25/2022, 11/09/2021, 10/19/2021 Imm-Influenza (#1) 2025 12/15/2023, 0 11/25/2022, 10/19/2021, Additional history exists Imm-DTaP/Tdap/Td (10 - Td or Tdap) 12/02/2025 12/02/2015, 08/20/2013, 07/06/2012, Additional history exists Annual Wellness (Adult): Indicated (All Coverage) 01/21/2026 01/21/2025, 11/27/2023, 11/25/2022, Additional history exists Anxiety Screening 01/21/2026 01/21/2025 Relationship Safety Screening/Counseling 01/21/2026 01/21/2025, 11/27/2023, 11/25/2022, Additional history exists Hypertension Screening (#1) 02/07/2026 Tobacco Screening 02/07/2026 02/07/2025, 11/25/2022 Breast Cancer Screening (Mammogram) 08/09/2026 08/09/2024 Diabetes Screening 01/22/2028 01/21/2025, 0 01/21/2025, 11/27/2023, Additional history exists Lipid Screening 01/21/2030 01/21/2025, 11/16, 11/25/2022, Additional history exists Cervical Cancer Screening 02/07/2030 Pap + HPV 02/07/2030 02/07/2025 Pap Smear 02/07/2030 02/07/2025, 07/17, 01/11/2016 (Managed by Outside Provider), Additional history exists Imm-Hepatitis B Completed 06/26/2000, 06/16, 03/04/1999, Additional history exists HIV Screening Completed 08/13/2020 Hepatitis C Screening Completed 08/13/2020 Alcohol and Drug Screen Completed 01/22/20, 11/27/2023, 11/25/2022, Additional history exists Depression Annual Screen Completed 01/21/2025, 07/18 Cervical Ablation/Cold-Knife Conization Discontinued Cervical Cryotherapy Discontinued Colposcopy Discontinued Endometrial Biopsy Discontinued Excision/Leep Discontinued HPV Genotyping Discontinued Vaginal Pap Discontinued Vulvoscopy Discontinued Procedures Procedure Name Priority Date/Time Associated Diagnosis Comments REFERRAL TO ORTHOPEDICS Routine 03/18/2025 3:00 AM EDT Arthritis of knee THINPREP IMAGING PAP, HPV MRNA E6/E7 RFLEX HPV 16,18/45 CT/NG Routine 02/07/2025 9:20 AM EDT Screening for HPV (human papillomavirus) COMPREHENSIVE METABOLIC PANEL Routine 01/21/2025 9:06 AM EDT Routine general medical examination at a health care facility LIPID PANEL Routine 01/21/2025 9:06 AM EDT Routine general medical examination at a health care facility REFERRAL FOR DIAGNOSTIC MAMMOGRAM Routine 08/09/2024 3:00 AM EDT Breast pain, left ANTIBODY HIV-1&HIV-2 SINGLE RESULT Routine 08/13/2020 11:26 AM EDT Screening for HIV (human immunodeficiency virus) HEPATITIS C ANTIBODY Routine 08/13/2020 11:26 AM EDT Need for hepatitis C screening test from Last 3 Months or Most Recently Relevant to Health Maintenance Results * REFERRAL TO ORTHOPEDICS (03/18/2025 3:00 AM EDT) 03/18/2025 3:00 AM EDT Mary Montez TUBERCULOSIS SPECIALIST-C REFERRAL Final Res ult * THINPREP IMAGING PAP, HPV MRNA E6/E7 RFLEX HPV 16,18/45 CT/NG (02/07/2025 9:20 AM EDT) CLINICAL INFORMATION See Note [facility] Comment:None given LMP See Note [facility] Comment:NONE GIVEN PREV. PAP See Note [facility] Comment:NONE GIVEN PREV. BX See Note [facility] Comment:NONE GIVEN SOURCE See Note [facility] Comment:Cervix STATEMENT OF ADEQUACY See Note [facility] Comment: Satisfactory for evaluation. Endocervical/transformation zone component present. INTERPRETATION/RESU LT See Note [facility] Comment: Cytology Results: Negative for intraepithelial lesion or malignancy. COMMENT See Note [facility] Comment: This Pap test has been evaluated with computer assisted technology. INFORMATION ANALYST See Note [facility] [employer] [facility] Comment: RXB, CT(ASCP) CT screening location: [place] [address] COMMENT [facility] [employer] HPV MRNA E6/E7 Not Detected Not Detected [facility] [employer] Comment: Methodology: Head Chopper-Mediated Amplification This assay detects E6/E7 viral messenger RNA (mRNA) from 14 high-risk HPV types (16,18,31,33,35,39,45,51,52,56,58,59,66,68). Cervical sources are required for HPV testing. If a vaginal source from a patient who has had a total hysterectomy with removal of cervix was submitted, please contact the testing laboratory for alternative testing options. For additional information, please refer to http://[employer]/faq/MDM284x7 (This link if provided for information/ educational purposes only.) CHLAMYDIA TRACHOMATIS RNA, TMA NOT DETECTED NOT DETECTED [facility] NEISSERIA GONORRHOEAE RNA, TMA NOT DETECTED NOT DETECTED [facility] [facility] [employer] COMMENT [facility] [employer] Swab Cervix uteri structure / Unknown 02/07/2025 9:20 AM EDT 02/08/2025 3:12 AM EDT Narrative [employer] [facility] - 02/11/2025 12:26 PM EDT EXPLANATORY NOTE: The Pap is a screening test for cervical cancer. It is not a diagnostic test and is subject to false negative and false positive results. It is most reliable when a satisfactory sample, regularly obtained, is submitted with relevant clinical findings and history, and when the Pap result is evaluated along with historic and current clinical information. The analytical performance characteristics of this assay, when used to test SurePath(TM) specimens have been determined by [employer]. The modifications have not been cleared or approved by the FDA. This assay has been validated pursuant to the CLIA regulations and is used for clinical purposes. For additional information, please refer to https://[employer]/faq/FEP924 (This link is being provided for information/ educational purposes only.) Kahlil Fletcher MD LAB - PATHOLOGY AND CYTOLOGY AM BULATORY Final Result [facility] [address] [address], [facility] [facility] [employer] [address] [phone] * (ABNORMAL) LIPID PANEL (01/21/2025 9:06 AM EDT) [facility] Signature CHOLESTEROL, TOTAL 240(H) <200 mg/dL [facility] [facility] [employer] HDL CHOLESTEROL 61 > OR = 50 mg/dL [facility] [facility] [employer] TRIGLYCERIDES 89 <150 mg/dL [facility] [facility] [employer] LDL-CHOLESTEROL 160(H) 99 mg/dL (calc) [facility] [employer] Comment: Reference range: <100 Desirable range <100 mg/dL for primary prevention; <70 mg/dL for patients with CHD or diabetic patients with > or = 2 CHD risk factors. LDL-C is now calculated using the Munir calculation, which is a validated novel method providing better accuracy than the Friedewald equation in the estimation of LDL-C. Mick SS et al. LIZZETH. 2013;310(19): 3480-3258 (http://education.OQO/faq/ONV893) CHOL/HDLC RATIO 3.9 <5.0 (calc) [facility] [facility] [employer] NON-HDL CHOLESTEROL 179(H) <130 mg/dL (calc) [facility] [facility] [employer] Comment: For patients with diabetes plus 1 major ASCVD risk factor, treating to a non-HDL-C goal of <100 mg/dL (LDL-C of <70 mg/dL) is considered a therapeutic option. Blood Blood / Unknown 01/21/2025 9 :06 AM EDT 01/21/2025 9:08 AM EDT Narrative [employer] - 01/23/2025 4:54 AM EDT FASTING:YES us Mary Montez TUBERCULOSIS SPECIALIST-C LAB - BLOOD DRAW Final Re sult Performing Organization Address City/[facility]/ZIP Co de Phone Number [facility] [facility] [address] [address], [facility] [facility] [employer] [address] [address] * COMPREHENSIVE METABOLIC PANEL (01/21/2025 9:06 AM EDT) GLUCOSE 87 65 - 99 mg/dL [facility] [facility] [employer] Comment: Fasting reference interval UREA NITROGEN (BUN) 16 7 - 25 mg/dL [facility] [facility] [employer] CREATININE (blood) 0.89 0.50 - 0.99 mg/dL [facility] [employer] EGFR 84 > OR = 60 mL/min/1. 73m2 [facility] [facility] [employer] BUN/CREATININE RATIO SEE NOTE: [facility] [employer] Comment: Not Reported: BUN and Creatinine are within reference range. SODIUM 138 135 - 146 mmol/L [facility] [facility] [employer] POTASSIUM 4.3 3.5 - 5.3 mmol/L [facility] [facility] [employer] CHLORIDE 104 98 - 110 mmol/L [facility] [facility] [employer] CARBON DIOXIDE 26 20 - 32 mmol/L [facility] [facility] [employer] CALCIUM 9.2 8.6 - 10.2 mg/dL [facility] [facility] [employer] PROTEIN, TOTAL 7.6 6.1 - 8.1 g/dL [facility] [facility] [employer] ALBUMIN 4.0 3.6 - 5.1 g/dL [facility] [facility] [employer] GLOBULIN 3.6 1.9 - 3.7 g/dL (calc) [facility] [facility] [employer] ALBUMIN/GLOBULI N RATIO 1.1 1.0 - 2.5 (calc) [facility] [facility] [employer] BILIRUBIN, TOTAL 0.6 0.2 - 1.2 mg/dL [facility] [facility] [employer] ALKALINE PHOSPHATASE 78 31 - 125 U/L [facility] [employer] AST 17 10 - 30 U/L [facility] [facility] [employer] ALT 20 6 - 29 U/L [facility] Blood Blood / Unknown 01/21/2025 9 :06 AM EDT 01/21/2025 9:08 AM EDT Narrative [facility] [facility] - 01/23/2025 4:54 AM EDT FASTING:YES Mary Montez TUBERCULOSIS SPECIALIST-C LAB - BLOOD DRAW Edited R esult - Final [facility] [employer] [address] [address], [facility] [facility] [employer] [address] [address] * REFERRAL FOR DIAGNOSTIC MAMMOGRAM (08/09/2024 3:00 AM EDT) 08/09/2024 3:00 AM EDT Mary Montez TUBERCULOSIS SPECIALIST-C IMG RFL MAMMO Edited Re sult - Final * HEPATITIS C ANTIBODY (08/13/2020 11:26 AM EDT) [facility] HEPATITIS C VIRUS SCREEN NEGATIVE NEGATIVE [facility] Blood Blood / Unknown 08/13/2020 1 1:26 AM EDT 08/13/2020 2:51 PM EDT [facility] - 08/13/2020 6:56 PM EDT [employer], [place] [address] [employer] - Carie Mosquera MD [place] ID [id number] ORD# [id number] Gwen BALDERRAMA LAB - BLOOD DRAW Final Re sult Performing Organization Address [facility] [place] [address], * HIV-1 & HIV-2 ANTIBODIES (08/13/2020 11:26 AM EDT) [facility] HIV 1 AND 2 ANTIBODY SCREEN NEGATIVE NEGATIVE [facility] Comment: This assay is a 4th generation assay allowing for earlier detection of HIV infection by detecting the presence of the HIV-1 p24 antigen as well as the traditional antibodies to HIV type 1 (including group O) and type 2. Use of a 4th generation assay is the current CDC recommendation for HIV screening. Blood Blood / Unknown 08/13/2020 1 1:26 AM EDT 08/13/2020 2:51 PM EDT [facility] - 08/13/2020 6:56 PM EDT [employer], [place] [address] [employer] - Carie Mosquera [place] [id number] ORD# [id number] Gwen BALDERRAMA LAB - BLOOD DRAW Final Re sult Performing Organization Address [facility] Co de Phone Number [facility] [facility] [address] [place] [address], from Last 3 Months or Most Recently Relevant to Health Maintenance Insurance LEO AMBRIZ/NURIS RUCKER Care Teams Manager Traffic Relationship Specialty Start Date End Date Mary Montez FNP-C [address] [place] [address] PCP - General Internal Medicine 08/19/24
== END 2025-05-20 16:13 | disposition home or self-care (01) ==
PROVIDERS: Emergency Provider Emergency Medicine; PCP Dentist General Practice
DX: S61.211A Laceration without foreign body of left index finger without damage to nail, initial encounter (principal); W26.0XXA Contact with knife, initial encounter; Y93.9 Activity, unspecified; Y92.9 Unspecified place or not applicable; Y99.9 Unspecified external cause status; Z23 Encounter for immunization
CPT/HCPCS: 12001; 90471; 90715; 99281; 99284; J2003